=== PATIENT | male | born 1960 | race Hispanic/Latino ===

== ENCOUNTER 2019-01-29 15:05 | Emergency (ER) | payer BC, OTHER ==
[~2019-01-29 15:05] MED LIST: ATOR10 PO; LOSA50TA64 PO
== END 2019-01-29 17:18 | disposition home or self-care (01) ==
LOC: EDH 15:05
DX: L03.811 Cellulitis of head [any part, except face] (principal); I10 Essential (primary) hypertension; E78.5 Hyperlipidemia, unspecified; Z98.890 Other specified postprocedural states; Z87.891 Personal history of nicotine dependence